=== PATIENT | female | born 2000 | race Caucasian/White ===

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

== ENCOUNTER 2023-07-09 03:44 | Inpatient (IN) | payer OTHER ==
[2023-07-09] MEDS ORDERED: METHYLERGONOVINE 0.2 MG/ML 1 ML AMP IM PRN (05:35)
[2023-07-09] MEDS ORDERED: CARBOPROST TROMETHAMINE 250 MCG/ML 1 ML AMP IM PRN (05:35)
[2023-07-09] MEDS ORDERED: TRANEXAMIC 1,000 MG/100ML-NACL 1,000 MG in EMPTY BAG 1 BAG IV PRN (05:35)
[2023-07-09] MEDS ORDERED: miSOPROStoL 200 MCG TAB PO PRN (05:35)
[2023-07-09] MEDS ORDERED: OXYTOCIN 10 UNIT/ML 1 ML VIAL IM PRN (05:35)
[2023-07-09] MEDS ORDERED: LIDOCAINE 0.5% (PF) 5 MG/ML (50 ML SDV) SQ PRN (05:35)
[2023-07-09] MEDS ORDERED: TERBUTALINE 1 MG/ML VIAL SQ PRN (05:35)
[2023-07-09 06:07] VITALS: RESP 16
[2023-07-09 06:08] LABS: Basophils % (A) 0 %; Eosinophils # (A) 0.1 k/uL (0-0.7); Eosinophils % (A) 1 %; HGB 11.7 gm/dL (11.4-16.0); Lymphocytes # (A) 1.6 k/uL (1.0-4.8); Lymphocytes % (A) 14 %; MCHC 32.4 g/dL (31.0-37.0); MCV 86.5 fL (80.0-100.0); Mean Platelet Volume 7.6; Monocytes # (A) 0.5 k/uL (0-1.0); Monocytes % (A) 4 %; Neutrophils # (A) 9.3 k/uL (1.3-7.7); Neutrophils % (A) 80 %; Platelet Count 346 k/uL (150-450); RBC 4.16 m/uL (3.80-5.40); RDW 14.6 % (11.5-15.5); WBC 11.7 k/uL (3.8-10.6)
[2023-07-09] MEDS: LACTATED RINGERS 1,000 ML IV SCH ×2 (06:17→09:50)
[2023-07-09] MEDS ORDERED: SODIUM CHLORIDE 0.9% 250 ML BAG ONE (06:40)
[2023-07-09] MEDS ORDERED: fentaNYL (PF) 50 MCG/ML 5 ML AMP ONE (06:40)
[2023-07-09] MEDS ORDERED: ROPIVACAINE 5 MG/ML 30 ML VIAL ONE (06:40)
--- NOTE | 2023-07-09 08:52 | P.HPOB ---
History of Present Illness H&P Date: 07/09/23 Chief Complaint: 39-3/7 weeks, labor The patient is a 22-year-old 1 para 0 admitted at 39-3/7 weeks as established by last menstrual period and confirmed by 8 week ultrasound. She is admitted in active labor with all signs reassuring, category 1 heart rate tracing. Her has been entirely uncomplicated and group B strep status is negative. Obstetrical history: 1 para 0 with current statistics listed in history present illness. EDC of 07/12/2023 was established by last menstrual period and confirmed by 8 week ultrasound. Laboratory workup demonstrates a blood type of A+ with a negative antibody screen. Rubella status is immune. All the remaining laboratory workup was within normal limits one hour Glucola was normal and group B strep status is negative. Gynecologic history: Unremarkable with no history of any infections to include STDs. Review of Systems Review of systems is confined to history of present illness. Past Medical History Past Medical History: No Reported History History of Any Multi-Drug Resistant Organisms: None Reported Past Surgical History: No Surgical Hx Reported Past Anesthesia/Blood Transfusion Reactions: No Reported Reaction Past Psychological History: Anxiety, Depression Smoking Status: Never smoker Past Alcohol Use History: None Reported Past Drug Use History: None Reported Medications and Allergies Home Medications Medication Instructions Recorded Confirmed Type Nitrofurantoin Monohyd/M-Cryst 100 mg PO Q12HR #6 cap 11/12/18 Rx [Macrobid] Phenazopyridine [Pyridium] 200 mg PO TID #9 tablet 11/12/18 Rx Allergies Allergy/AdvReac Type Severity Reaction Status Date / Time No Known Allergies Allergy Verified 11/12/18 04:17 Exam Vital Signs Temp Pulse Resp BP Pulse Ox 07/09/23 05:38 97.9 F 93 16 121/84 97 Intake and Output 07/08/23 07/09/23 07/09/23 22:59 06:59 14:59 Intake Total 300 Balance 300 Intake: Oral 300 Other: Weight 73.028 kg In general, this is a well-developed, well-nourished white female in no acute distress. Her heart has a regular rhythm and rate without murmur. Her lungs clear to auscultation bilaterally in all carbajal. Her abdomen is gravid, nondistended, has normal active bowel sounds, soft, nontender, and without any palpable masses aside from uterine fundus. Her extremities are without any cyanosis, clubbing, or edema and are nontender to palpation bilaterally. Digital cervical examination on straights her cervix to be 9 cm dilated, 80% effaced, with the vertex in presentation at 0 station. Artificial rupture of membranes is carried out demonstrating clear fluid. Results Result Diagrams: 07/09/23 05:50 Abnormal Lab Results - Last 24 Hours (Table) 07/09/23 Range/Units 05:50 WBC 11.7 H (3.8-10.6) k/uL Neutrophils # 9.3 H (1.3-7.7) k/uL Assessment and Plan (1) Active labor at term Current Visit: Yes Status: Acute Code(s): [id number] - SNOMED Code(s): 358 23711 Plan: The patient has been admitted for management of labor. An epidural catheter is in place for analgesia. Following artificial rupture of membranes, she will have close maternal and surveillance and expectant management will be practice. I would anticipate normal vaginal delivery in the near future. Should there be no significant progress, Pitocin augmentation will be added.
[2023-07-09] MEDS ORDERED: ZOLPIDEM 5 MG TAB PO PRN (10:52)
[2023-07-09] MEDS ORDERED: diphenhydrAMINE 50 MG/ML 1 ML VIAL IVP PRN ×2 (10:52)
[2023-07-09] MEDS ORDERED: diphenhydrAMINE 50 MG CAP PO PRN (10:52)
[2023-07-09] MEDS ORDERED: HYDROcodone/APAP 5-325MG 1 EACH TAB PO PRN (10:52)
[2023-07-09] MEDS ORDERED: BENZOCAINE/MENTHOL SPRAY 1 GM/SPRAY AEROSOL TOPICAL PRN (10:52)
[2023-07-09] MEDS ORDERED: diphenhydrAMINE 25 MG CAP PO PRN (10:52)
[2023-07-09] MEDS ORDERED: LANOLIN CREAM 5 GM TUBE TOPICAL PRN (10:52)
[2023-07-09] MEDS ORDERED: HYDROcodone/APAP 7.5-325MG 1 EACH TAB PO PRN (10:52)
[2023-07-09] MEDS ORDERED: HYDROCORTISONE 2.5% RECTAL CREAM 30 GM TUBE RECTAL PRN (10:52)
[2023-07-09] MEDS ORDERED: SIMETHICONE 80 MG CHEWABLE PO PRN (10:52)
[2023-07-09] MEDS ORDERED: ACETAMINOPHEN TAB 325 MG TAB PO PRN (10:52)
--- NOTE | 2023-07-09 10:55 | P.PROBDLV ---
Vaginal Delivery Note - . Vaginal Delivery Note: The patient is a 22-year-old 1 para 0 admitted at 39-3/7 weeks by good dating parameters perches admitted in active labor with all signs reassuring. Her was entirely uncomplicated and group B strep status is negative. On labor and delivery, she had an epidural catheter placed for analgesia. She progressed to approximately 8 cm at which time artificial rupture of membranes is carried out demonstrating clear fluid. She then progressed quickly to complete and pushed over the course of approximate 30 minutes to a normal spontaneous vaginal delivery of a viable 6 lbs. 11 oz. baby girl with Apgars of 9 at 1 minute and 9 at 5 minutes delivered in the direct occiput anterior position. The placenta was delivered spontaneously, intact, and grossly normal with the possibility of some fracture of the membranes that may remain in the uterus at this time. There was otherwise a grossly normal, centrally inserted three-vessel cord. There was a small first-degree perineal laceration which extended slightly up the right labia which was closed repaired in standard fashion with 3-0 chromic catgut. Estimated blood loss for the case approximate 200 mL. There were no complications. All sponge, instrument, and needle counts were correct. Both mother and infant are resting comfortably in recovery.
[2023-07-09] MEDS ORDERED: OXYTOCIN 30 UNITS/500 ML NS 30 UNIT in SALINE 1 500ML.BAG IV SCH (11:00)
[2023-07-09] MEDS: IBUPROFEN 600 MG TAB PO PRN ×2 (16:03→21:40)
[2023-07-09] MEDS ORDERED: SENNOSIDES-DOCUSATE SODIUM 1 EACH TAB PO SCH (20:00)
[2023-07-10 08:03] LABS: Basophils % (A) 0 %; Eosinophils # (A) 0.1 k/uL (0-0.7); Eosinophils % (A) 1 %; HCT 27.8 % (34.0-46.0); Lymphocytes # (A) 2.1 k/uL (1.0-4.8); Lymphocytes % (A) 15 %; MCH 28.8 pg (25.0-35.0); MCHC 33.3 g/dL (31.0-37.0); MCV 86.4 fL (80.0-100.0); Mean Platelet Volume 7.4; Monocytes # (A) 0.5 k/uL (0-1.0); Monocytes % (A) 4 %; Neutrophils # (A) 11.2 k/uL (1.3-7.7); Neutrophils % (A) 80 %; Platelet Count 302 k/uL (150-450); RBC 3.21 m/uL (3.80-5.40); RDW 14.6 % (11.5-15.5)
[2023-07-10 08:27] LABS: HGB 9.2 gm/dL (11.4-16.0)
[2023-07-10] MEDS: IBUPROFEN 600 MG TAB PO PRN (09:11)
--- NOTE | 2023-07-10 09:29 | P.DS ---
Providers Date of admission: 07/09/23 05:30 Expected date of discharge: 07/10/23 Attending physician: Obed Marina Primary care physician: Stated None - Discharge Diagnosis(es) (1) Active labor at term Current Visit: Yes Status: Acute (2) Normal spontaneous vaginal delivery Current Visit: Yes Status: Acute Hospital Course: The patient is a 22-year-old 1 para 0 admitted at 39-3/7 weeks by good dating parameters. She is admitted in active labor with a category 1 heart tracing. Her was uncomplicated and group B strep status was negative. On labor and delivery, she had an epidural catheter placed for analgesia. She underwent artificial rupture of membranes and progressed quickly to complete. She thereafter pushed to a normal spontaneous vaginal delivery of a viable 6 lbs. 11 oz. baby girl with Apgars of 9 at 1 minute and 9 at 5 minutes. Her course was unremarkable with vital signs remaining stable and her temperature was afebrile throughout. She was deemed stable for discharge on day #1 was discharged home to follow-up in the office in 6 weeks' time routinely. Discharge instructions included calling for any significantly increased bleeding or foul-smelling lochia, significantly increased fever or abdominal pain, perineal complaints, breast complaints, or anything else that concerned her. She is additionally instructed to have nothing in the vagina for at least 6 weeks time to include intercourse. She understood her instructions and agrees to follow up as noted above. Discharge medications included continued vitamins as she has opted to breast- feed. She was otherwise to use [id number] analgesic pain medications as needed. Maternal blood type is A+ and rubella status is immune. Procedures: #1. Epidural analgesia 2. Artificial rupture of membranes #3. Normal s pontaneous vaginal delivery #4. Repair of perineal laceration Patient Condition at Discharge: Stable Plan - Discharge Summary New Discharge Prescriptions: No Action Nitrofurantoin Monohyd/M-Cryst [Macrobid] 100 mg PO Q12HR #6 cap Phenazopyridine [Pyridium] 200 mg PO TID #9 tablet Discharge Medication List Nitrofurantoin Monohyd/M-Cryst [Macrobid] 100 mg PO Q12HR #6 cap 11/12/18 [Rx] Phenazopyridine [Pyridium] 200 mg PO TID #9 tablet 11/12/18 [Rx] Follow up Appointment(s)/Referral(s): Obed Marina MD [STAFF PHYSICIAN] - 6 Weeks Discharge Disposition: HOME SELF-CARE
[2023-07-10 09:37] VITALS: BP 103/70; PULSE 92; TEMP 98.1
== END 2023-07-10 11:35 | disposition home or self-care (01) | DRG 560 ==
LOC: FBPOP 03:44 → 4FBP 05:30
PROVIDERS: ADMIT Obstetrics & Gynecology Obstetrics; ATTEND Obstetrics & Gynecology
PROC: 10E0XZZ Delivery of Products of Conception, External Approach (ICD-10-PCS; principal; 2023-07-09)
PROC: 0HQ9XZZ Repair Perineum Skin, External Approach (ICD-10-PCS; 2023-07-09)
DX: O70.0 First degree perineal laceration during delivery (principal); Z37.0 Single live birth; Z3A.39 39 weeks gestation of pregnancy
CPT/HCPCS: 59025; 85025; 86850; 86900; 86901; 99213